=== PATIENT | female | born 1965 | race Caucasian/White ===

== ENCOUNTER 2024-10-17 07:30 | Outpatient (CLI) | payer OTHER ==
[~2024-10-17] VITALS: Ht 165.1 cm; Wt 74.4 kg
[2024-10-17 09:15] VITALS: BP 107/52; O2SAT 99
[2024-10-17 10:10] VITALS: BP 136/78; O2SAT 99
[2024-10-17 10:25] VITALS: BP 114/78; O2SAT 100
[2024-10-17 10:40] VITALS: BP 103/66; O2SAT 99
== END 2024-10-17 08:00 | disposition home or self-care (01) ==
LOC: TOM 07:30
PROVIDERS: ATTEND Internal Medicine Hematology & Oncology
DX: C48.0 Malignant neoplasm of retroperitoneum (principal)